=== PATIENT | female | born 1995 | race African-American/Black ===

== ENCOUNTER 2017-08-14 10:30 | Emergency (ER) | payer MEDICAID ==
[~2017-08-14] VITALS: Ht 165.1 cm; Wt 90.7 kg
[~2017-08-14 10:30] MED LIST: DEXM30CA
[2017-08-14 10:35] VITALS: BP 153/89
== END 2017-08-14 12:36 | disposition home or self-care (01) ==
LOC: ER 10:30
DX: S80.02XA Contusion of left knee, initial encounter (principal); X50.1XXA Overexertion from prolonged static or awkward postures, initial encounter; Y93.89 Activity, other specified; Y92.89 Other specified places as the place of occurrence of the external cause; Y99.8 Other external cause status
CPT/HCPCS: 73564

== ENCOUNTER 2020-05-26 23:37 | Emergency (ER) | payer MEDICAID ==
[~2020-05-26] VITALS: Ht 165.1 cm; Wt 104.3 kg
[2020-05-27 00:25] VITALS: BP 127/60
[2020-05-27] MEDS ORDERED: ACETAMINOPHEN 325 MG TAB PO ONE (00:30)
[2020-05-27 00:38] LABS: Urine Bacteria NONE SEEN /hpf (None Seen); Urine Blood Negative /uL (Negative); Urine Mucus FEW (None Seen); Urine Specific Gravity 1.027 (1.001-1.035); Urine WBC 5 /hpf (0 - 5)
[2020-05-27 00:43] LABS: Alcohol, Urine < 3.0 mg/dL (0-10); Amphetamine Screen, Urine NEGATIVE (NEGATIVE); Barbiturate Scree,Urine NEGATIVE (NEGATIVE); Benzodiazephine Screen, Urine NEGATIVE (NEGATIVE); Cannabinoid Screen, Urine NEGATIVE (NEGATIVE); Cocaine Screen, Urine NEGATIVE (NEGATIVE); Opiate Scree,Urine NEGATIVE (NEGATIVE); Phencyclidine Screen, Urine NEGATIVE (NEGATIVE)
== END 2020-05-27 01:15 | disposition home or self-care (01) ==
LOC: ER 23:43
DX: S16.1XXA Strain of muscle, fascia and tendon at neck level, initial encounter (principal); M54.6 Pain in thoracic spine; F41.9 Anxiety disorder, unspecified; E86.0 Dehydration; X58.XXXA Exposure to other specified factors, initial encounter; Y93.89 Activity, other specified; Y99.8 Other external cause status; Y92.89 Other specified places as the place of occurrence of the external cause
CPT/HCPCS: 71045; 72040; 72070; 80307; 81001; 81025

== ENCOUNTER 2020-10-24 23:30 | Observation (INO) | payer MEDICAID ==
[~2020-10-24] VITALS: Ht 0 cm
[2020-10-25] MEDS ORDERED: TERBUTALINE SULFATE 1 MG/ML 1ML VIAL SC STA (02:35)
[2020-10-25] MEDS ORDERED: TERBUTALINE SULFATE 1 MG/ML 1ML VIAL SC ONE (02:41)
== END 2020-10-25 03:22 | disposition home or self-care (01) ==
LOC: UNDOADMOB 23:30 → LDRP 23:30 → UNDODISOB 10-25 03:22
PROVIDERS: ADMIT Obstetrics & Gynecology; ATTEND Obstetrics & Gynecology
DX: O26.892 Other specified pregnancy related conditions, second trimester (principal); O26.872 Cervical shortening, second trimester; R10.9 Unspecified abdominal pain; Z3A.20 20 weeks gestation of pregnancy
CPT/HCPCS: 59025; 76805; 76817; 81002; 82962; G0378; J3105